=== PATIENT | male | born 1995 | race Caucasian/White ===

== ENCOUNTER 2016-06-14 12:19 | Emergency (ER) | payer OTHER ==
[~2016-06-14] VITALS: Ht 162.6 cm; Wt 72.0 kg
[~2016-06-14 12:19] MED LIST: COLC0.6T6 PO; IBUP800T25 PO
[2016-06-14 12:21] VITALS: Ht 162.6 cm; Wt 72.0 kg
[2016-06-14] MEDS ORDERED: DEXAMETHASONE 10 MG/ML 1 ML INJ PO ONE (14:00)
[2016-06-14] MEDS ORDERED: CLIN-73 PO (14:19)
[2016-06-14 14:29] VITALS: TEMP 98.4
--- NOTE | 2016-06-14 15:05 | ERD ---
ER Documentation Chief Complaint Date/Time DATE: 06/14/16 TIME: 15:02 Chief Complaint sore throat since this am HPI This is a 28-year-old male presents to the ER with multiple complaints. Patient has a past medical history of scalp acne and he is currently taking medication for that. Patient states that he has been noticing that area has been oozing yellow pus. Patient is also complaining of sore throat and hoarseness. Patient had a cough however cough resolved. Sore throat has been on for 2 days. He admits to headache any fevers or chills. He denies any chest pain or shortness of breath. ROS 12 point review of systems was done, all negative except per HPI. Medications Home Meds Active Scripts Clindamycin Hcl* (Clindamycin Hcl*) 300 Mg Capsule, 300 MG PO TID for 10 Days, CAP Prov:TESSA ANNA 06/14/16 Ibuprofen* (Motrin*) 800 Mg Tab, 800 MG PO Q6H Y for PAIN AND OR ELEVATED TEMP, #30 TAB Prov:WONG SERNA NP 01/10/15 Colchicine* (Colcrys*) 0.6 Mg Tablet, 0.6 MG PO as directed, #3 TAB Take 2 tablets immediately. Then 1 tablet 1 hour later. Prov:WONG SERNA NP 01/10/15 Allergies Allergies: Coded Allergies: No Known Allergy (Verified , 01/10/15) PMhx/Soc History of Surgery: No Anesthesia Reaction: No Hx Neurological Disorder: No Hx Respiratory Disorders: No Hx Cardiac Disorders: Yes (HTN) Hx Psychiatric Problems: No Hx Miscellaneous Medical Probl: No Hx Alcohol Use: No Hx Substance Use: No Hx Tobacco Use: No Physical Exam Vitals Vital Signs Date Time Temp Pulse Resp B/P Pulse Ox O2 Delivery O2 Flow Rate FiO2 06/14/16 14:29 98.4 06/14/16 12:21 98.3 63 18 126/80 100 Physical Exam GENERAL: The patient is well developed and appropriate for usual state of health , in no apparent distress. HEENT: Atraumatic. Conjunctivae are pink. Pupils equal, round, and reactive to light. Extraocular muscles are grossly intact. Bilateral tympanic membranes are clear with no evidence of erythema, effusion or dulling of the light reflex. Tonsillar erythema with one tonsillar exudate. NECK: C-spine is soft and supple. There is no cervical lymphadenopathy. CHEST: Clear to auscultation bilaterally. There are no rales, wheezes or rhonchi. HEART: Regular rate and rhythm. No murmurs, clicks, rubs or gallops.s. EXTREMITIES: Equal pulses bilaterally. There is no peripheral clubbing, cyanosis or edema. No focal swelling or erythema. Full range of motion. Grossly neurovascularly intact. NEURO: Alert and oriented. SKIN: Patient has scalp acne and there is areas of yellow pus. Results 24 hrs Current Medications Medications (Trade) Dose Ordered Sig/Shante Route PRN Reason Start Time Stop Time Status Last Admin Dose Admin Dexamethasone (Decadron) 10 mg ONCE ONCE PO 06/14/16 14:00 06/14/16 14:01 DC 06/14/16 13:37 Procedures/MDM This is a 20-year-old male presents to the ER with multiple complaints. Patient does have pharyngitis which may be related to strep that he does have one exudate. He also had what appears to be an infection of the scalp. Will be sent home with clindamycin. Patient is afebrile and well-appearing. He needs to follow-up with his primary care doctor within 1-2 days return to ER sooner if symptoms worsen. My medical decision making was shared with the patient he understands and agrees with plan. Departure Diagnosis: Primary Impression: Pharyngitis Condition: Stable Patient Instructions: Pharyngitis, Strep (Presumed) Additional Instructions: Call your primary care doctor TOMORROW for an appointment during the next 1-2 days.See the doctor sooner or return here if your condition worsens before your appointment time. TESSA ANNA Jun 14, 2016 15:05
== END 2016-06-14 14:29 | disposition home or self-care (01) ==
LOC: FTE 12:19
DX: J02.9 Acute pharyngitis, unspecified (principal); I10 Essential (primary) hypertension
CPT/HCPCS: J1100; Z7502; 99283

== ENCOUNTER 2016-08-11 22:19 | Emergency (ER) | payer OTHER ==
[~2016-08-11] VITALS: Ht 165.1 cm; Wt 122.0 kg
[~2016-08-11 22:19] MED LIST changes: +CLIN-73 PO
[2016-08-11 23:15] VITALS: Ht 165.1 cm; Wt 122.0 kg
[2016-08-12] MEDS ORDERED: KETOROLAC 15 MG INJ IV STA (01:03)
[2016-08-12] MEDS ORDERED: ONDANSETRON 4 MG INJ IV STA (01:03)
--- NOTE | 2016-08-12 01:03 | ERD ---
ER Documentation Chief Complaint Date/Time DATE: 08/12/16 TIME: 00:57 Chief Complaint GENERALIZED BODY ACHES, KNEE TINGLING, DIARRHEA, NAUSEA VOMITING HPI This pleasant 20-year-old male reports generalized body aches, headache, diarrhea with nausea and vomiting since yesterday. Patient reports more than 20 loose stools, vomiting 3 today. Reports that he has joint pain in his knees , pain in his low back and neck. Denies any recent travel, sick contacts, or possibility of contaminated food. Patient denies fever, or chills. Has not been able to eat solid foods today but has been able to tolerate sips liquids. Patient requested a back x-ray, teaching provided without injury that we could not x-ray his back today, but that his pain would be addressed as well as his nausea and vomiting, patient verbalizes understanding ROS All systems reviewed and are negative except as per history of present illness. Medications Home Meds Active Scripts Ondansetron (Ondansetron Odt) 4 Mg Tab.rapdis, 4 MG PO Q6H Y for NAUSEA AND/OR VOMITING, #10 TAB Prov:MONSE HAYWOOD 08/12/16 Clindamycin Hcl* (Clindamycin Hcl*) 300 Mg Capsule, 300 MG PO TID for 10 Days, CAP Prov:TESSA ANNA C 06/14/16 Ibuprofen* (Motrin*) 800 Mg Tab, 800 MG PO Q6H Y for PAIN AND OR ELEVATED TEMP, #30 TAB Prov:WONG SERNA NP 01/10/15 Colchicine* (Colcrys*) 0.6 Mg Tablet, 0.6 MG PO as directed, #3 TAB Take 2 tablets immediately. Then 1 tablet 1 hour later. Prov:WONG SERNA NP 01/10/15 Allergies Allergies: Coded Allergies: No Known Allergy (Verified , 01/10/15) PMhx/Soc History of Surgery: No Anesthesia Reaction: No Hx Neurological Disorder: No Hx Respiratory Disorders: No Hx Cardiac Disorders: Yes (HTN) Hx Psychiatric Problems: No Hx Miscellaneous Medical Probl: No Hx Alcohol Use: No Hx Substance Use: No Hx Tobacco Use: No Smoking Status: Never smoker Physical Exam Vitals Vital Signs Date Time Temp Pulse Resp B/P Pulse Ox O2 Delivery O2 Flow Rate FiO2 08/12/16 02:35 98.3 70 18 116/77 97 Room Air 08/11/16 23:15 100.9 100 18 155/96 97 Vitals stable, triage notes reviewed Physical Exam Const: Patient obviously does not feel well, in no acute distress Head: Atraumatic Eyes: Normal Conjunctiva, PERRLA, EOMI ENT: Normal External Ears, Nose and Mouth mucous membranes moist Neck: Full range of motion..~ No meningismus. No cervical point tenderness generalized paraspinal tenderness Resp: Chest rises and falls to symmetrically clear to auscultation bilaterally Cardio: Regular rate and rhythm, no murmurs Abd: Soft, generalized tenderness, no rebound tenderness, no CVA tenderness Skin: No petechiae or rashes Back: No midline or flank tenderness Ext: Bilateral knees, elbows, ankles, wrists without edema, full range of motion observed 90 flexion full extension. Neur: Awake and alert Psych: Normal Mood and Affect Results 24 hrs Current Medications Medications (Trade) Dose Ordered Sig/Shante Route PRN Reason Start Time Stop Time Status Last Admin Dose Admin Sodium Chloride (NS) 1,000 ml @ 1,000 mls/hr Q1H ONCE IV 08/12/16 01:30 08/12/16 02:29 DC 08/12/16 01:35 Ondansetron HCl (Zofran Inj) 4 mg ONCE STAT IV 08/12/16 01:03 08/12/16 01:05 DC 08/12/16 01:35 Ketorolac Tromethamine (Toradol) 15 mg ONCE STAT IV 08/12/16 01:03 08/12/16 01:05 DC 08/12/16 01:35 Procedures/MDM This pleasant 20-year-old male patient presents to emergency department with 1 day history of body aches, joint pain, diarrhea and nausea and vomiting. Appendicitis, gastroenteritis, cholecystitis, pancreatitis, not suspected. Patient physical exam and history are consistent with a viral gastroenteritis, patient will be treated with IV fluids Zofran and Toradol while in emergency department. Patient reassessed after 90 minutes reports improvement of symptoms. Patient will be discharged home with Zofran, clear liquid diet advance as tolerated. Return to emergency room for worsening symptoms, vomiting not responding to treatment, abdominal pain, hematuria, fevers not responding to Motrin or Tylenol. I feel the patient is stable for discharge at this time and outpatient management by primary care physician. I have discussed results, examination findings, the treatment plan with the patient and family present prior to discharge. Indications for emergent reevaluation, side effects of medication were also discussed. All questions were answered. Patient verbalizes understanding and agrees with plan of care. Departure Diagnosis: Primary Impression: Gastroenteritis Condition: Good Patient Instructions: Gastroenteritis, Non-Infectious (Child) (Adult) Additional Instructions: Thank you for for coming to [facility] for your care today. Please ask your nurse or provider if you have questions about your care today and do not leave until all your questions have been answered. Please use any medications given as directed and follow-up with your doctor (or the doctor you were referred to) in the next 2-3 days. If you do not have a primary care doctor you may follow up at [place] [facility] [place] ([place] You may also use motrin and tylenol as needed for fever and/or pain unless instructed otherwise by your provider or nurse. Indications for more urgent follow-up have been discussed, but you may return to the Emergency Department at ANY time for any worrisome or worsening symptoms. If you have abdominal pain, please know that no test or exam you received is perfect and you should follow up within 8 hours for continued pain. If you had any imaging studies today, such as an X-Ray or CT Scan, these studies will be reviewed later by a radiologist. You will be called if there are important findings that were not identified today, so make sure the contact information you provided at registration is correct. If you received any narcotic pain control medicine today, such as Vicodin, Morphine or Dilaudid, your coordination and judgment may be affected for a number of hours. Please do not drive or operate heavy machinery, and you may want someone to assist you at home. If you were given a prescription for narcotic medication, be aware that it is very addictive- use sparingly and only if necessary. MONSE HAYWOOD Aug 12, 2016 01:03
[2016-08-12] MEDS ORDERED: SOD CHLORIDE 0.9% 1,000 ML IV ONE (01:30)
[2016-08-12 02:35] VITALS: BP 116/77; PULSE 70; RESP 18; TEMP 98.3
[2016-08-12] MEDS ORDERED: ONDA4TAB14 PO (03:03)
== END 2016-08-12 03:15 | disposition home or self-care (01) ==
LOC: FTE 22:19
DX: K52.9 Noninfective gastroenteritis and colitis, unspecified (principal); I10 Essential (primary) hypertension
CPT/HCPCS: 96374; 96375; J1885; J2405; J7030; Z7502

== ENCOUNTER 2017-07-12 08:53 | Emergency (ER) | END 2017-07-12 11:29 | disposition home or self-care (01) ==

== ENCOUNTER 2017-10-30 14:42 | Emergency (ER) | END 2017-10-30 17:50 | disposition home or self-care (01) ==

== ENCOUNTER 2018-05-09 16:44 | Emergency (ER) | payer OTHER ==
[~2018-05-09] VITALS: Ht 175.3 cm; Wt 131.5 kg
[~2018-05-09 16:44] MED LIST changes: -CLIN-73 PO; +CLOB15OI15 TOP; -COLC0.6T6 PO; +DOXY100T20 PO; -IBUP800T25 PO; +[UNRECOGNIZED DRUG - CODE] TP
[2018-05-09 16:56] VITALS: Ht 175.3 cm; Wt 131.5 kg
[2018-05-09] MEDS ORDERED: KETOROLAC 30 MG INJ IV STA (21:26)
[2018-05-09] MEDS ORDERED: HYDROCODONE/APAP (10/325) TAB PO ONE (23:00)
[2018-05-10] MEDS ORDERED: HYDR-4011 PO (01:01)
[2018-05-10] MEDS ORDERED: CEPH-443 PO (01:01)
[2018-05-10] MEDS ORDERED: morphine 4 MG/ML VIAL IV STA (01:09)
[2018-05-10 01:35] VITALS: BP 138/83; PULSE 86; RESP 19
--- NOTE | 2018-05-10 02:00 | ERD ---
ER Documentation Chief Complaint Chief Complaint Complains of a lump on the neck since today HPI 22-year-old male patient with a past medical history of hypertension presents the ED complaining of a lump on the right side of his neck that started earlier today. Patient rates his pain a 10 out of 10. Patient reports that it is very painful. Denies any fever, chills, nausea, vomiting, diarrhea, pain, shortness of breath, abdominal pain, neck stiffness. Patient is eating intake, has no difficulty swallowing liquids or solids. ROS All systems reviewed and are negative except as per history of present illness. Medications Home Meds Active Scripts Hydrocodone/Acetaminophen (Farnam 5-325 Tablet) 1 Each Tablet, 1 TAB PO Q6H PRN for PAIN, #7 TAB Prov:OLRA BENOIT PA-C 05/10/18 Cephalexin* (Keflex*) 500 Mg Capsule, 500 MG PO QID for 10 Days, CAP Prov:LORA BENOIT PA-C 05/10/18 Doxycycline Hyclate* (Doxycycline Hyclate*) 100 Mg Tablet.dr, 100 MG PO BID for 14 Days, TAB Prov:KASSANDRA OSULLIVAN PA-C 10/30/17 Clobetasol Propionate* (Clobetasol Propionate*) 15 Gm Oint, 1 APPLIC TOP BID for 14 Days, #1 TUB Prov:KASSANDRA OSULLIVAN PA-C 10/30/17 Sulfacetamide Sodium/Sulfur (Sodium Sulf-Sulfur Cleanser) 170 Gm Cleanser, 1 APPLIC TP DAILY for 7 Days Prov:KASSANDRA OSULLIVAN PA-C 10/30/17 Allergies Allergies: Coded Allergies: ibuprofen (Verified Allergy, Unknown, 05/09/18) PMhx/Soc History of Surgery: No Anesthesia Reaction: No Hx Neurological Disorder: No Hx Respiratory Disorders: No Hx Cardiac Disorders: Yes (HTN) Hx Psychiatric Problems: No Hx Miscellaneous Medical Probl: No Hx Alcohol Use: No Hx Substance Use: No Hx Tobacco Use: No FmHx Family History: No diabetes, No coronary disease Physical Exam Vitals Vital Signs Date Temp Pulse Resp B/P (MAP) Pulse Ox O2 O2 Flow FiO2 Time Delivery Rate 05/10/18 98.4 86 19 138/83 97 Room Air 01:35 (101) 05/09/18 99.7 92 20 169/104 96 16:56 (125) Physical Exam Const: [id number], well-nourished. In no acute distress. Head: Atraumatic, normocephalic Eyes: Normal Conjunctiva without injection. No purulent discharge. PERRL. EOMI ENT: Normal external ear. Ear canal without erythema. Tympanic membrane pearly ahn without effusion or bulging. Nasal canal clear with normal turbinates. Moist oropharynx without tonsillar exudates. Non-erythematous pharynx. Uvula midline. No drooling. No trismus. Neck: Full range of motion. No meningismus. No cervical lymphadenopathy. Resp: Clear to auscultation bilaterally. No wheezing, rhonchi, rales, or crackles. No accessory muscle use. No retractions. Cardio: Regular rate and rhythm. No murmurs, rubs or gallops. Abd: Soft, non tender, non distended. Normal bowel sounds. No palpable masses. No rebound tenderness. No guarding. Skin: No petechiae or rashes Back: No midline tenderness. No CVA tenderness. Ext: No cyanosis, or edema. Neur: Awake and alert. Psych: Normal Mood and Affect Result Diagram: 05/09/18214005/09/182140 Results 24 hrs Laboratory Tests Test 05/09/18 21:41 White Blood Count 9.5 10^3/ul Red Blood Count 5.64 10^6/ul Hemoglobin 15.8 g/dl Hematocrit 48.5 % Mean Corpuscular Volume 86.0 fl Mean Corpuscular Hemoglobin 28.0 pg Mean Corpuscular Hemoglobin Concent 32.6 g/dl Red Cell Distribution Width 12.9 % Platelet Count 316 10^3/UL Mean Platelet Volume 9.5 fl Immature Granulocytes % 0.400 % Neutrophils % 64.6 % Lymphocytes % 25.6 % Monocytes % 7.2 % Eosinophils % 1.7 % Basophils % 0.5 % Nucleated Red Blood Cells % 0.0 /100WBC Immature Granulocytes # 0.040 10^3/ul Neutrophils # 6.2 10^3/ul Lymphocytes # 2.4 10^3/ul Monocytes # 0.7 10^3/ul Eosinophils # 0.2 10^3/ul Basophils # 0.1 10^3/ul Nucleated Red Blood Cells # 0.0 10^3/ul Sodium Level 142 mmol/L Potassium Level 4.0 mmol/L Chloride Level 101 mmol/L Carbon Dioxide Level 29 mmol/L Anion Gap 12 Blood Urea Nitrogen 9 mg/dl Creatinine 1.00 mg/dl Est Glomerular Filtrat Rate mL/min > 60 mL/min Glucose Level 89 mg/dl Calcium Level 9.2 mg/dl Total Bilirubin 0.5 mg/dl Direct Bilirubin 0.00 mg/dl Indirect Bilirubin 0.5 mg/dl Aspartate Amino Transf (AST/SGOT) 49 IU/L Alanine Aminotransferase (ALT/SGPT) 51 IU/L Alkaline Phosphatase 86 IU/L Total Protein 8.9 g/dl Albumin 4.4 g/dl Globulin 4.50 g/dl Albumin/Globulin Ratio 0.97 Monoscreen Negative Current Medications Medications Dose Sig/Shante Start Time Status Last (Trade) Ordered Route PRN Stop Time Admin Dose Reason Admin Ketorolac 30 mg ONCE STAT 05/09/18 DC 05/09/18 Tromethamine IV 21:26 21:53 (Toradol) 05/09/18 21:28 1 tab ONCE ONCE 05/09/18 DC 05/09/18 Acetaminophen PO 23:00 22:50 / 05/09/18 23:01 Hydrocodone Bitart (Farnam (10/325)) Morphine 4 mg ONCE STAT 05/10/18 DC 05/10/18 Sulfate IV 01:09 05/10/18 01:14 (morphine) 01:11 Procedures/MDM 22-year-old male patient with no significant past medical history presents to ED complaining of a right-sided lump on his neck. Patient has a blood pressure of 169/104. Blood Pressure Assessment: Patient's blood pressure was elevated (>120/80) but appears stable without evidence of hypertension emergency or urgency. The patient was counseled about the risks of hypertension and urged to pursue outpatient monitoring and therapy within a week with their primary care physician. Patient's pain treated here in the ED with 30 mg IV Toradol, Farnam 10-325 mg, 4 mg IV morphine with improvement of his symptoms.. CBC: No leukocytosis. No e/o of systemic infection. No e/o anemia. CMP: No e/o severe acidosis, alkalosis, renal failure, diabetic ketoacidosis, liver disease IMPRESSION: Corresponding to the area of clinical concern is a solid right neck mass measuring 3.2 x 2.7 x 1.5 cm without internal blood flow, findings unable to exclude lymphadenopathy versus primary neck neoplasm. Consideration should be given for follow-up evaluation with CT of the neck with contrast. Patient symptoms could likely be secondary to lymphadenitis. Ultrasound shows solid right neck mass of 3.2 x 1.[address] Sharpe, who stated that patient can be managed on outpatient basis. Patient is appropriate for outpatient antibiotics. If symptoms do not improve, patient should follow-up with his primary care physician, consider excisional biopsy versus CT. Patient's physical exam include lungs which were clear to auscultation and a normal pulse oximetry. Bilateral ears pearly alves. No tenderness to palpation of tragus or mastoid. Low suspicion for mastoiditis, otitis externa, otitis media. Patient is speaking in full sentences. There is a low suspicion for pneumonia, epiglottitis, croup, sinusitis, peritonsillar abscess, hands foot mouth disease, scarlet fever, Kawasaki disease, Bobby's angina, retropharyngeal abscess, meningitis, sepsis, acute abdomen or other emergent conditions. Diagnosis: Swelling of lymph node Discharge medications: KeAlvarado mcpherson Follow up with primary care physician in 1-2 days. Instructed patient to return to the ED sooner for any worsening symptoms. Patient's questions were answered. Patient is hemodynamically stable. Patient understood and agreed with discharge plan. Patient discharged stable. Disclaimer: Inadvertent spelling and grammatical errors are likely due to E HR/dictation software use and do not reflect on the overall quality of patient care. Also, please note that the electronic time recorded on this note does not necessarily reflect the actual time of the patient encounter. Departure Diagnosis: Primary Impression: Swelling of lymph node Condition: Stable Patient Instructions: Excisional Biopsy: Neck Lymph Node, Cervical Adenitis, Antiobiotic Treatment Referrals: COMMUNITY CLINICS YOU HAVE RECEIVED A MEDICAL SCREENING EXAM AND THE RESULTS INDICATE THAT YOU DO NOT HAVE A CONDITION THAT REQUIRES URGENT TREATMENT IN THE EMERGENCY DEPARTMENT. FURTHER EVALUATION AND TREATMENT OF YOUR CONDITION CAN WAIT UNTIL YOU ARE SEEN I N YOUR DOCTORS OFFICE WITHIN THE NEXT 1-2 DAYS. IT IS YOUR RESPONSIBILITY TO MAKE AN APPOINTMENT FOR FOLOW-UP CARE. IF YOU HAVE A PRIMARY DOCTOR --you should call your primary doctor and schedule an appointment IF YOU DO NOT HAVE A PRIMARY DOCTOR YOU CAN CALL OUR PHYSICIAN REFERRAL HOTLINE AT IF YOU CAN NOT AFFORD TO SEE A PHYSICIAN YOU CAN CHOSE FROM THE FOLLOWING [facility] [address] [place] [facility] [address] [facility] [address] [facility] [address] [facility] [address] [facility] [address] [facility]. [facility] YOU HAVE RECEIVED A MEDICAL SCREENING EXAM AND THE RESULTS INDICATE THAT YOU DO NOT HAVE A CONDITION THAT REQUIRES URGENT TREATMENT IN THE EMERGENCY DEPARTMENT. FURTHER EVALUATION AND TREATMENT OF YOUR CONDITION CAN WAIT UNTIL YOU ARE SEEN IN YOUR DOCTORS OFFICE WITHIN THE NEXT 1-2 DAYS. IT IS YOUR RESPONSIBILITY TO MAKE AN APPOINTMENT FOR FOLOW-UP CARE. IF YOU HAVE A PRIMARY DOCTOR --you should call your primary doctor and schedule and appointment IF YOU DO NOT HAVE A PRIMARY DOCTOR YOU CAN CALL OUR PHYSICIAN REFERRAL HOTLINE AT . IF YOU CAN NOT AFFORD TO SEE A PHYSICIAN YOU CAN CHOSE FROM THE FOLLOWING [facility] INSTITUTIONS: [facility] [address] [place] [address] [facility] [address] [place] [address] [facility] [address] [place] [address] [facility] Additional Instructions: Call your primary care doctor TOMORROW for an appointment during the next 2-3 days for a recheck of your lymph node and potential referral to obtain biopsy if symptoms do not improve.See the doctor sooner or return here if your condition worsens before your appointment time. You have been given a medicine which may cause drowsiness.DO NOT DRIVE OR OPERATE DANGEROUS MACHINERY while taking this medicine! LORA BENOIT PA-C May 10, 2018 02:00
== END 2018-05-10 01:54 | disposition home or self-care (01) ==
LOC: FTE 16:44
DX: R59.0 Localized enlarged lymph nodes (principal); I10 Essential (primary) hypertension
CPT/HCPCS: 36415; 76536; 80053; 85025; 86308; 87880; 96374; 96375; J1885; J2270; Z7502; Z7610

== ENCOUNTER 2018-07-23 08:48 | Emergency (ER) | payer OTHER ==
[~2018-07-23] VITALS: Wt 126.0 kg
[~2018-07-23 08:48] MED LIST changes: +CEPH-443 PO; +HYDR-4011 PO
[2018-07-23 08:49] VITALS: BP 135/78; PULSE 66; RESP 18
[2018-07-23] MEDS ORDERED: ONDANSETRON (ODT) 4 MG TAB ODT STA (09:26)
[2018-07-23] MEDS ORDERED: ONDA4TAB14 PO (10:42)
[2018-07-23] MEDS ORDERED: ACET500C5 PO (10:42)
--- NOTE | 2018-07-23 12:36 | ERD ---
ER Documentation Chief Complaint Chief Complaint AP WITH DIARHEA AND VOMITING SINCE YESTERDAY HPI 22-year-old male patient with no significant past medical history presents ED complaining of right upper quadrant abdominal pain associated with vomiting and diarrhea since yesterday. Reports that he has had 5 episodes of nonbilious n onbloody vomiting and 3 episodes of nonmucoid nonbloody diarrhea. States that he may have eaten some cereal. Denies any chest pain, shortness of breath, wheezing, constipation, neck stiffness, fever, chills. States that when he eats, it worsens the pain on the right side. Describes the pain as achy and rates it a 7 out of 10. ROS All systems reviewed and are negative except as per history of present illness. Medications Home Meds Active Scripts Acetaminophen* (Tylophen*) 500 Mg Capsule, 1 CAP PO Q6H PRN for PAIN AND OR ELEVATED TEMP, #20 CAP Prov:LORA BENOIT PA-C 07/23/18 Ondansetron (Ondansetron Odt) 4 Mg Tab.rapdis, 4 MG PO Q6H PRN for NAUSEA AND/OR VOMITING, #10 TAB Prov:LORA BENOIT PA-C 07/23/18 Hydrocodone/Acetaminophen ([place] 5-325 Tablet) 1 Each Tablet, 1 TAB PO Q6H PRN for PAIN, #7 TAB Prov:LORA BENOIT PA-C 05/10/18 Cephalexin* (Keflex*) 500 Mg Capsule, 500 MG PO QID for 10 Days, CAP Prov:LORA BENOIT PA-C 05/10/18 Doxycycline Hyclate* (Doxycycline Hyclate*) 100 Mg Tablet.dr, 100 MG PO BID for 14 Days, TAB Prov:KASSANDRA OSULLIVAN PA-C 10/30/17 Clobetasol Propionate* (Clobetasol Propionate*) 15 Gm Oint, 1 APPLIC TOP BID for 14 Days, #1 TUB Prov:KASSANDRA OSULLIVAN PA-C 10/30/17 Sulfacetamide Sodium/Sulfur (Sodium Sulf-Sulfur Cleanser) 170 Gm Cleanser, 1 APPLIC TP DAILY for 7 Days Prov:KASSANDRA OSULLIVAN PA-C 10/30/17 Allergies Allergies: Coded Allergies: ibuprofen (Verified Allergy, Unknown, 2/28/19) PMhx/Soc History of Surgery: No Anesthesia Reaction: No Hx Neurological Disorder: No Hx Respiratory Disorders: No Hx Cardiac Disorders: Yes (HTN) Hx Psychiatric Problems: No Hx Miscellaneous Medical Probl: No Hx Alcohol Use: No Hx Substance Use: No Hx Tobacco Use: No FmHx Family History: No diabetes, No coronary disease Physical Exam Vitals Vital Signs Date Temp Pulse Resp B/P (MAP) Pulse Ox O2 O2 Flow FiO2 Time Delivery Rate 07/23/18 97.5 66 18 135/78 98 08:49 (97) Physical Exam Const: [id number], well-nourished. In no acute distress. Head: Atraumatic, normocephalic Eyes: Normal Conjunctiva without injection. No purulent discharge. ENT: Normal external ear, nose. Moist oropharynx without tonsillar exudates. Non-erythematous pharynx. Uvula midline. No drooling. No trismus. Neck: No cervical midline tenderness. Full range of motion. No meningismus. No cervical lymphadenopathy. No JVD. Resp: Clear to auscultation bilaterally. No wheezing, rhonchi, rales, or crackles. No accessory muscle use. No retractions. Cardio: Regular rate and rhythm. No murmurs, rubs or gallops. Abd: Soft, right upper quadrant tenderness, non distended. Normal bowel sounds. No palpable masses. No rebound tenderness. No guarding. Negative McBurney's point. Negative psoas sign. Negative obturator sign. Skin: No petechiae or rashes Back: No midline tenderness. No CVA tenderness. Ext: No cyanosis, or edema. Neur: Awake and alert. Normal gait. Normal coordination. Psych: Normal Mood and Affect Result Diagram: 07/23/18 0949 07/23/18 0949 Results 24 hrs Laboratory Tests Test 07/23/18 09:49 White Blood Count 8.1 10^3/ul Red Blood Count 5.82 10^6/ul Hemoglobin 16.3 g/dl Hematocrit 50.2 % Mean Corpuscular Volume 86.3 fl Mean Corpuscular Hemoglobin 28.0 pg Mean Corpuscular Hemoglobin Concent 32.5 g/dl Red Cell Distribution Width 13.4 % Platelet Count 316 10^3/UL Mean Platelet Volume 9.4 fl Immature Granulocytes % 0.200 % Neutrophils % 53.8 % Lymphocytes % 32.3 % Monocytes % 9.5 % Eosinophils % 3.7 % Basophils % 0.5 % Nucleated Red Blood Cells % 0.0 /100WBC Immature Granulocytes # 0.020 10^3/ul Neutrophils # 4.4 10^3/ul Lymphocytes # 2.6 10^3/ul Monocytes # 0.8 10^3/ul Eosinophils # 0.3 10^3/ul Basophils # 0.0 10^3/ul Nucleated Red Blood Cells # 0.0 10^3/ul Urine Color YELLOW Urine Clarity CLEAR Urine pH 5.0 Urine Specific [place] 1.024 Urine Ketones NEGATIVE mg/dL Urine Nitrite NEGATIVE mg/dL Urine Bilirubin NEGATIVE mg/dL Urine Urobilinogen NEGATIVE mg/dL Urine Leukocyte Esterase NEGATIVE Bhanu/ul Urine Hemoglobin NEGATIVE mg/dL Urine Glucose NEGATIVE mg/dL Urine Total Protein NEGATIVE mg/dl Sodium Level 143 mmol/L Potassium Level 4.7 mmol/L Chloride Level 105 mmol/L Carbon Dioxide Level 30 mmol/L Anion Gap 8 Blood Urea Nitrogen 13 mg/dl Creatinine 0.82 mg/dl Est Glomerular Filtrat Rate mL/min > 60 mL/min Glucose Level 84 mg/dl Calcium Level 9.5 mg/dl Total Bilirubin 0.6 mg/dl Direct Bilirubin 0.00 mg/dl Indirect Bilirubin 0.6 mg/dl Aspartate Amino Transf (AST/SGOT) 63 IU/L Alanine Aminotransferase (ALT/SGPT) 65 IU/L Alkaline Phosphatase 77 IU/L Total Protein 8.1 g/dl Albumin 4.3 g/dl Globulin 3.80 g/dl Albumin/Globulin Ratio 1.13 Lipase 53 U/L Current Medications Medications Dose Sig/Shante Start Time Status Last (Trade) Ordered Route PRN Stop Time Admin Dose Reason Admin Ondansetron 4 mg ONCE STAT 07/23/18 DC 07/23/18 HCl (Zofran ODT 09:26 10:21 Odt) 07/23/18 09:27 Procedures/MDM 22-year-old male patient with no significant past medical history presents ED complaining of right upper quadrant abdominal pain. Patient is afebrile and nontoxic-appearing. Patient was further worked up with CBC, CMP, lipase, UA, gallbladder ultrasound. Patient's pain and symptoms have improved after treatment with Zofran 4 mg ODT. Patient tolerated oral intake. Patient had a successful p.o. challenge. CBC: No leukocytosis. No e/o of systemic infection. No e/o anemia. CMP: No e/o severe acidosis, alkalosis, renal failure, diabetic ketoacidosis, liver disease Lipase within normal limits. Urine: No leukocyte esterase, no nitrites, no hematuria. IMPRESSION: Unremarkable right upper quadrant abdominal ultrasound. Differentials include viral etiology for patient's vomiting and diarrhea. Patient's abdominal pain has resolved. Low suspicion for testicular torsion, gastritis, GERD, peptic ulcer disease, cholecystitis, choledocholithiasis, cholangitis, pancreatitis, appendicitis, bowel obstruction, ileus, volvulus, nephrolithiasis, pyelonephritis, hepatitis, perforated viscus, diverticulitis, abdominal hernia, acute abdomen, mesenteric ischemia or other emergent conditions. Diagnosis: Abdominal pain, Vomiting Diarrhea Discharge medications: Tylenol, Zofran Follow up with primary care physician in 1-2 days. Instructed patient to return to the ED sooner for any worsening symptoms. Patient's questions were answered. Patient is hemodynamically stable. Patient understood and agreed with discharge plan. Patient discharged stable. Disclaimer: Inadvertent spelling and grammatical errors are likely due to EHR/dictation software use and do not reflect on the overall quality of patient care. Also, please note that the electronic time recorded on this note does not necessarily reflect the actual time of the patient encounter. Departure Diagnosis: Primary Impression: Abdominal pain Abdominal location: unspecified location Qualified Codes: R10.9 - Unspecified abdominal pain Additional Impression: Vomiting and diarrhea Condition: Stable Patient Instructions: Self-Care for Vomiting and Diarrhea, Vomiting And Diarrhea, Nonspecific (Adult) Referrals: [facility] YOU HAVE RECEIVED A MEDICAL SCREENING EXAM AND THE RESULTS INDICATE THAT YOU DO NOT HAVE A CONDITION THAT REQUIRES URGENT TREATMENT IN THE EMERGENCY DEPARTMENT. FURTHER EVALUATION AND TREATMENT OF YOUR CONDITION CAN WAIT UNTIL YOU ARE SEEN IN YOUR DOCTORS OFFICE WITHIN THE NEXT 1-2 DAYS. IT IS YOUR RESPONSIBILITY TO MAKE AN APPOINTMENT FOR FOLOW-UP CARE. IF YOU HAVE A PRIMARY DOCTOR --you should call your primary doctor and schedule an appointment IF YOU DO NOT HAVE A PRIMARY DOCTOR YOU CAN CALL OUR PHYSICIAN REFERRAL HOTLINE AT IF YOU CAN NOT AFFORD TO SEE A PHYSICIAN YOU CAN CHOSE FROM THE FOLLOWING [facility] [address] [facility] [address] [facility] [address] [facility] [address] [facility] [address] [facility]. [facility] [address] [facility]. [facility] YOU HAVE RECEIVED A MEDICAL SCREENING EXAM AND THE RESULTS INDICATE THAT YOU DO NOT HAVE A CONDITION THAT REQUIRES URGENT TREATMENT IN THE EMERGENCY DEPARTMENT. FURTHER EVALUATION AND TREATMENT OF YOUR CONDITION CAN WAIT UNTIL YOU ARE SEEN IN YOUR DOCTORS OFFICE WITHIN THE NEXT 1-2 DAYS. IT IS YOUR RESPONSIBILITY TO MAKE AN APPOINTMENT FOR FOLOW-UP CARE. IF YOU HAVE A PRIMARY DOCTOR --you should call your primary doctor and schedule and appointment IF YOU DO NOT HAVE A PRIMARY DOCTOR YOU CAN CALL OUR PHYSICIAN REFERRAL HOTLINE AT . IF YOU CAN NOT AFFORD TO SEE A PHYSICIAN YOU CAN CHOSE FROM THE FOLLOWING [facility] INSTITUTIONS: [facility] [address] [place] [address] [facility] [address] [place] [address] [facility] + [facility] [address] [place] [address] [facility] URGENT CARE/SPECIALTIES Additional Instructions: Call your primary care doctor TOMORROW for an appointment during the next 2-3 days.See the doctor sooner or return here if your condition worsens before your appointment time. LORA BENOIT PA-C July 23, 2018 12:36
== END 2018-07-23 10:52 | disposition home or self-care (01) ==
LOC: FTE 08:48
DX: R10.11 Right upper quadrant pain (principal); R19.7 Diarrhea, unspecified; R11.10 Vomiting, unspecified
CPT/HCPCS: 36415; 76705; 80053; 81003; 83690; 85025; Z7502; Z7610

== ENCOUNTER 2018-10-17 03:56 | Emergency (ER) | payer OTHER ==
[~2018-10-17] VITALS: Ht 175.3 cm; Wt 130.3 kg
[~2018-10-17 03:56] MED LIST changes: +ACET325T33 PO; +ACET500C5 PO; +CYCL10TA7 PO; +ONDA4TAB14 PO
[2018-10-17 03:58] VITALS: BP 161/99; PULSE 78; RESP 19; Ht 175.3 cm; Wt 130.3 kg
[2018-10-17] MEDS ORDERED: HYDROCODONE/APAP (5/325) TAB PO ONE (04:30)
--- NOTE | 2018-10-18 05:57 | ERD ---
ER Documentation Chief Complaint Chief Complaint C/O MEDIAL BACK PAIN X1 WEEK S/P SUDDEN MOVEMENT WHILE WORKING ON CAR HPI 23-year-old male presents to the emergency department complaining of constant, 9/10 severity back pain which began after working on his car earlier. He localizes the pain to the right upper back. Symptoms began 1 week ago. He denies any loss of bowel or bladder function, fevers, chills, or other symptoms at this time. ROS All systems reviewed and are negative except as per history of present illness. Medications Home Meds Active Scripts Acetaminophen* (Tylenol*) 325 Mg Tablet, 2 TAB PO Q6 PRN for PAIN AND OR ELEVAT ED TEMP, #20 TAB Prov:ELAINA CAMPOS PA-C 10/17/18 Cyclobenzaprine Hcl* (Cyclobenzaprine Hcl*) 10 Mg Tablet, 10 MG PO TID, #15 TAB Prov:ELAINA CAMPOS PA-C 10/17/18 Acetaminophen* (Tylophen*) 500 Mg Capsule, 1 CAP PO Q6H PRN for PAIN AND OR ELEVATED TEMP, #20 CAP Prov:LORA BENOIT PA-C 07/23/18 Ondansetron (Ondansetron Odt) 4 Mg Tab.rapdis, 4 MG PO Q6H PRN for NAUSEA AND/OR VOMITING, #10 TAB Prov:LORA BENOIT PA-C 07/23/18 Hydrocodone/Acetaminophen ([place] 5-325 Tablet) 1 Each Tablet, 1 TAB PO Q6H PRN for PAIN, #7 TAB Prov:LORA EBNOIT PA-C 05/10/18 Cephalexin* (Keflex*) 500 Mg Capsule, 500 MG PO QID for 10 Days, CAP Prov:LORA BENOIT PA-C 05/10/18 Doxycycline Hyclate* (Doxycycline Hyclate*) 100 Mg Tablet.dr, 100 MG PO BID for 14 Days, TAB Prov:KASSANDRA OSULLIVAN PA-C 10/30/17 Clobetasol Propionate* (Clobetasol Propionate*) 15 Gm Oint, 1 APPLIC TOP BID for 14 Days, #1 TUB Prov:KASSANDRA OSULLIVAN PA-C 10/30/17 Sulfacetamide Sodium/Sulfur (Sodium Sulf-Sulfur Cleanser) 170 Gm Cleanser, 1 APPLIC TP DAILY for 7 Days Prov:KASSANDRA OSULLIVAN Demetris BELL 10/30/17 Allergies Allergies: Coded Allergies: ibuprofen (Verified Allergy, Unknown, 05/09/18) PMhx/Soc History of Surgery: No Anesthesia Reaction: No Hx Neurological Disorder: No Hx Respiratory Disorders: No Hx Cardiac Disorders: Yes (HTN) Hx Psychiatric Problems: No Hx Miscellaneous Medical Probl: No Hx Alcohol Use: Yes (once a month) Hx Substance Use: No Hx Tobacco Use: No Smoking Status: Never smoker FmHx Family History: No diabetes Physical Exam Vitals Vital Signs Date Temp Pulse Resp B/P (MAP) Pulse Ox O2 O2 Flow FiO2 Time Delivery Rate 10/17/18 99.1 78 19 161/99 99 03:58 (119) Physical Exam Const: No acute distress Head: Atraumatic Eyes: Normal Conjunctiva ENT: Normal External Ears, Nose and Mouth. Neck: Full range of motion. No meningismus. Resp: Clear to auscultation bilaterally Cardio: Regular rate and rhythm, no murmurs Abd: Soft, non tender, non distended. Normal bowel sounds Skin: No petechiae or rashes Back: No midline or flank tenderness. Tenderness palpation of the paraspinal muscles of the right back in the thoracic region. No midline tenderness or step-offs. Ext: No cyanosis, or edema Neur: Awake and alert Psych: Normal Mood and Affect Results 24 hrs Current Medications Medications Dose Sig/Shante Start Time Status Last (Trade) Ordered Route PRN Stop Time Admin Dose Reason Admin 1 tab ONCE ONCE 10/17/18 DC 10/17/18 Acetaminophen PO 04:30 10/17/18 04:40 / 04:31 Hydrocodone Bitart ([place] (5/325)) Procedures/MDM 23-year-old male presents to the emergency department with signs and symptoms most consistent with musculoskeletal back pain. Patient was administered department with improvement of his symptoms. Patient's musculoskeletal symptoms have stabilized while they have been evaluated in the department and are appropriate for outpatient work up. No evidence of cauda equina, cord compression, infiltrative, or infectious etiology. Patient's blood pressure was elevated (>120/80) but appears stable without ileana dence of hypertension emergency or urgency. The patient is to follow-up and pursue outpatient monitoring and therapy with their primary care physician within 1 week and return immediately if they have any new, worsening, or concerning symptoms. Departure Diagnosis: Primary Impression: Back pain Condition: Fair Patient Instructions: Back Pain (Acute Or Chronic) Additional Instructions: Call your primary care doctor TOMORROW for an appointment during the next 1-2 days.See the doctor sooner or return here if your condition worsens before your appointment time. ELAINA CAMPOS PA-C Oct 18, 2018 05:57
== END 2018-10-17 05:56 | disposition home or self-care (01) ==
LOC: FTE 03:56
DX: M54.6 Pain in thoracic spine (principal); I10 Essential (primary) hypertension
CPT/HCPCS: Z7502; Z7610; 99283

== ENCOUNTER 2018-10-26 03:12 | Emergency (ER) | payer OTHER ==
[~2018-10-26] VITALS: Ht 175.3 cm; Wt 131.8 kg
[2018-10-26 03:34] VITALS: BP 128/70; PULSE 70; RESP 20; Ht 175.3 cm; Wt 131.8 kg
== END 2018-10-26 07:11 | disposition home or self-care (01) ==
LOC: FTE 03:12
DX: G58.9 Mononeuropathy, unspecified (principal); I10 Essential (primary) hypertension
CPT/HCPCS: 99282

== ENCOUNTER 2019-01-10 02:15 | Inpatient (IN) | payer OTHER ==
[2019-01-10] VITALS (19 sets, daily range): BP systolic 144–194; BP diastolic 81–106; PULSE 73–106; RESP 15–29; Ht 180.3 cm; Wt 139.7 kg
[~2019-01-10] VITALS: Ht 180.3 cm; Wt 139.7 kg
[~2019-01-10 02:15] MED LIST changes: +AMOX1TAB10 PO; +DOCU-144 PO; +DOXY-214 PO; -DOXY100T20 PO; +Work Note
[2019-01-10] MEDS ORDERED: SOD CHLORIDE 0.9% 1,000 ML IV STA (02:41)
[2019-01-10] MEDS ORDERED: morphine 4 MG/ML VIAL IV STA (02:41)
[2019-01-10] MEDS ORDERED: PIPER-TAZO 3.375 GM IV (PMX) 100 ML IVPB ONE (04:00)
[2019-01-10] MEDS ORDERED: BISACODYL (EC) 5 MG TAB PO PRN (04:30)
[2019-01-10] MEDS ORDERED: DOCUSATE SODIUM 100 MG CAP PO PRN (04:30)
[2019-01-10] MEDS ORDERED: NACL 0.9% 3 ML SYG IV SCH (04:30)
[2019-01-10] MEDS ORDERED: ONDANSETRON 4 MG INJ IV PRN ×3 (04:30→15:00)
[2019-01-10] MEDS: SOD CHLORIDE 0.9% 1,000 ML IV SCH ×2 (05:37→17:44)
[2019-01-10] MEDS ORDERED: HYDROmorphONE 2 MG/ML SYG IV STA (05:44)
[2019-01-10] MEDS ORDERED: hydrALAzine 20 MG INJ IV PRN ×2 (09:30→14:00)
[2019-01-10] MEDS: morphine 2 MG INJ IV PRN ×3 (09:50→21:54)
[2019-01-10] MEDS ORDERED: PIPER-TAZO 3.375 GM IV (PMX) 100 ML IVPB SCH (12:00)
[2019-01-10] MEDS ORDERED: NEOSTIGMINE 3 MG/3 ML SYRINGE ONE (13:43)
[2019-01-10] MEDS ORDERED: ROCURONIUM 50 MG INJ ONE (13:43)
[2019-01-10] MEDS ORDERED: PROPOFOL 20 ML ONE (13:43)
[2019-01-10] MEDS ORDERED: SUCCINYLCHOLINE CHLORIDE 100 MG/5 ML SYG IV ONE (13:43)
[2019-01-10] MEDS ORDERED: GLYCOPYRROLATE 0.4 MG INJ ONE (13:43)
[2019-01-10] MEDS ORDERED: ONDANSETRON 4 MG INJ ONE (13:43)
[2019-01-10] MEDS ORDERED: CEFAZOLIN 1 GM INJ ONE (13:43)
[2019-01-10] MEDS ORDERED: FENTAnyl 50 MCG/ML VIAL ONE (13:43)
[2019-01-10] MEDS ORDERED: MIDAZOLAM 1 MG/ML 2 ML INJ ONE (13:43)
[2019-01-10] MEDS ORDERED: DEXAMETHASONE 4 MG/ML 5 ML INJ ONE (13:44)
[2019-01-10] MEDS ORDERED: OXYCODONE/ACETAMINOPHEN (5/325) TAB PO PRN ×4 (14:00→15:00)
[2019-01-10] MEDS ORDERED: TRIMETHOBENZAMIDE 100 MG/ML VIAL IM PRN (14:00)
[2019-01-10] MEDS ORDERED: HYDROmorphONE 1 MG/5 ML IV SYRINGE IV PRN ×3 (14:00)
[2019-01-10] MEDS ORDERED: IPRATROPIUM (NEB) 0.5 MG/2.5 ML AMP HHN PRN (14:00)
[2019-01-10] MEDS ORDERED: FENTAnyl 50 MCG/ML VIAL IV PRN ×3 (14:00)
[2019-01-10] MEDS ORDERED: EPHEDrine 25 MG/5 ML SYG IV PRN (14:00)
[2019-01-10] MEDS ORDERED: ALBUTEROL 0.083% (NEB) 2.5 MG/3 ML AMP HHN PRN (14:00)
[2019-01-10] MEDS ORDERED: DIPHENHYDRAMINE 50 MG INJ IV PRN (14:00)
[2019-01-10] MEDS ORDERED: LABETALOL HCL 20MG INJ IV PRN (14:00)
[2019-01-10] MEDS ORDERED: MEPERIDINE 25 MG INJ IV PRN (14:00)
[2019-01-10] MEDS ORDERED: MIDAZOLAM 1 MG/ML 2 ML INJ IV PRN (14:00)
[2019-01-10] MEDS ORDERED: BUPIVACAINE 0.25%/EPI (SDV) 30 ML INJ INJ ONE (14:15)
[2019-01-10] MEDS ORDERED: SUGAMMADEX SODIUM 200 MG/2 ML VIAL IV ONE (14:23)
[2019-01-10] MEDS ORDERED: morphine 2 MG INJ IV PRN (15:00)
[2019-01-10] MEDS: PIPER-TAZO 3.375 GM IV (PMX) 100 ML IVPB SCH (17:44)
[2019-01-11] MEDS: PIPER-TAZO 3.375 GM IV (PMX) 100 ML IVPB SCH ×4 (00:13→21:30)
[2019-01-11 02:00] VITALS: BP 125/71; PULSE 87; RESP 16
[2019-01-11] MEDS: morphine 2 MG INJ IV PRN (02:01)
[2019-01-11] MEDS: ACETAMINOPHEN 325 MG TAB PO PRN ×2 (06:21→18:34)
[2019-01-11 07:40] VITALS: BP 132/81; PULSE 96; RESP 18
[2019-01-11] MEDS: DOCUSATE SODIUM 100 MG CAP PO SCH ×2 (14:00→21:30)
[2019-01-11 14:20] VITALS: BP 146/87; PULSE 95; RESP 18
[2019-01-11 20:00] VITALS: BP 124/71; PULSE 84; RESP 17
[2019-01-12 02:00] VITALS: BP 118/78; PULSE 81; RESP 17
[2019-01-12] MEDS ORDERED: CEPASTAT LOZENGE MT PRN (03:00)
[2019-01-12] MEDS: PIPER-TAZO 3.375 GM IV (PMX) 100 ML IVPB SCH ×2 (06:12→14:00)
[2019-01-12 07:40] VITALS: BP 143/82; PULSE 102; RESP 18
[2019-01-12] MEDS: DOCUSATE SODIUM 100 MG CAP PO SCH (09:08)
[2019-01-12 14:30] VITALS: BP 142/87; PULSE 12; RESP 16
== END 2019-01-12 15:44 | disposition home or self-care (01) | DRG 342 ==
LOC: FTE 02:15 → 5EC 04:04
PROVIDERS: ADMIT Family Medicine; ATTEND Family Medicine
PROC: 0DTJ4ZZ Resection of Appendix, Percutaneous Endoscopic Approach (ICD-10-PCS; principal; 2019-01-10 14:00)
DX: K35.30 Acute appendicitis with localized peritonitis, without perforation or gangrene (principal); Z68.41 Body mass index [BMI] 40.0-44.9, adult; E66.01 Morbid (severe) obesity due to excess calories; I10 Essential (primary) hypertension; R74.0 Nonspecific elevation of levels of transaminase and lactic acid dehydrogenase [LDH]
CPT/HCPCS: 36415; 74176; 80053; 80061; 81001; 81003; 83036; 83690; 83735; 84443; 85025; 88304; 96374; 96375; J0360; J0690; J1100; J1170; J2175; J2250; J2270; J2405; J2543; J2710; J3010; J7030